=== PATIENT | male | born 1950 | race Hispanic/Latino ===

== ENCOUNTER 2021-08-10 15:31 | Inpatient (IN) | payer MEDICARE ==
[~2021-08-10] VITALS: Ht 182.9 cm; Wt 95.3 kg
[2021-08-10 16:36] VITALS: BP 141/82
[2021-08-10] MEDS ORDERED: MAGNESIUM HYDROXIDE 30 ML UDC PO PRN (17:00)
[2021-08-10] MEDS ORDERED: DEXTROSE 50% SYRINGE 50 ML IV PRN (17:00)
[2021-08-10] MEDS: PIPERACILLIN/TAZOBACTAM 3.375 GM in SODIUM CHLORIDE 0.9% 50ML 50 ML IV SCH (17:55)
[2021-08-10] MEDS ORDERED: SODIUM CHLORIDE 0.9% 250ML 250 ML ONE (17:58)
[2021-08-10] MEDS ORDERED: OMEPRAZOLE40 MG PO (18:04)
[2021-08-10] MEDS ORDERED: OMEGA 3 1,0001 EACH PO (18:04)
[2021-08-10] MEDS ORDERED: NIFEDIPINE ER30 M1 PO (18:04)
[2021-08-10] MEDS ORDERED: NOVOLIN 70100 UNIT/3 SQ ×2 (18:04)
[2021-08-10] MEDS ORDERED: METFORMIN HCL500 MG PO (18:04)
[2021-08-10] MEDS ORDERED: LORATADINE10 MG PO (18:04)
[2021-08-10] MEDS ORDERED: BENZONATATE100 MG PO (18:04)
[2021-08-10] MEDS ORDERED: SIMVASTATIN20 MG PO (18:04)
[2021-08-10] MEDS ORDERED: MONTELUKAST SOD10 MG PO (18:04)
[2021-08-10] MEDS ORDERED: PENTOXIFYLLINE400 MG PO (18:04)
[2021-08-10] MEDS ORDERED: ONE DAILY MEN'1 EAC1 (18:04)
[2021-08-10 18:07] VITALS: BP 141/82
[2021-08-10 18:13] VITALS: BP 141/82
[2021-08-10 18:14] VITALS: BP 141/82
[2021-08-10 18:30] LABS: BASOPHILS % 0.3 % (0.0-1.0); EOSINOPHILS # (AUTO) 0.1 (0.0-0.4); HEMOGLOBIN 12.1 g/dL (14.0-18.0); LYMPHOCYTES # (AUTO) 1.6 (1.0-3.2); LYMPHOCYTES % 13.8 % (18.0-39.1); MEAN CORPUSCULAR HGB CONC 31.8 g/dL (31-35); MEAN CORPUSCULAR VOLUME 84.8 fL (81-99); MONOCYTES # (AUTO) 0.9 (0.2-0.8); MONOCYTES % 8.1 % (4.4-11.3); NEUTROPHILS # (AUTO) 8.7 (2.1-6.9); NEUTROPHILS % 76.6 % (38.7-80.0); PLATELET COUNT 295 x10e3/uL (140-360); RED BLOOD COUNT 4.48 x10e6/uL (4.3-5.7)
[2021-08-10 18:46] LABS: ANION GAP 15.1 mmol/L (8-16); CALCIUM 9.2 mg/dL (8.4-10.2); CREATININE, SERUM 0.99 mg/dL (0.72-1.25); POTASSIUM 4.1 mmol/L (3.5-5.1)
[2021-08-10] MEDS: Vancomycin IV 1 GM in SODIUM CHLORIDE 0.9% 250ML 250 ML IV SCH (18:56)
[2021-08-10 18:58] LABS: CHOL/HDL RATIO 2.7 (3.9-4.7)
[2021-08-10 20:00] VITALS: BP 140/91
[2021-08-10 21:00] VITALS: BP 140/91
[2021-08-10] MEDS: HEPARIN SOD (PORCINE) 5,000 UNIT/ML VIAL SC SCH (22:00)
[2021-08-10] MEDS: INSULIN LISPRO 100 UNIT/1 ML 3ML VIAL SQ SCH (22:00)
[2021-08-10] MEDS: INSULIN GLARGINE 100 UNITS/ML VIAL SQ SCH (22:00)
[2021-08-10] MEDS: SIMVASTATIN 40 MG TAB PO SCH (22:00)
[2021-08-11] VITALS (8 sets, daily range): BP systolic 114–144; BP diastolic 60–85
[2021-08-11] MEDS: PIPERACILLIN/TAZOBACTAM 3.375 GM in SODIUM CHLORIDE 0.9% 50ML 50 ML IV SCH ×2 (00:15→08:09)
[2021-08-11] MEDS: Vancomycin IV 1 GM in SODIUM CHLORIDE 0.9% 250ML 250 ML IV SCH (06:17)
[2021-08-11] MEDS: PANTOPRAZOLE SOD 40 MG TABEC PO SCH (06:24)
[2021-08-11] MEDS: ACETAMINOPHEN 325 MG TAB PO PRN ×2 (06:24→21:54)
[2021-08-11] MEDS: INSULIN LISPRO 100 UNIT/1 ML 3ML VIAL SQ SCH ×4 (07:30→22:13)
[2021-08-11] MEDS: NIFEDIPINE CR 30 MG TAB PO SCH (08:09)
[2021-08-11] MEDS: HEPARIN SOD (PORCINE) 5,000 UNIT/ML VIAL SC SCH ×2 (09:00→22:16)
[2021-08-11] MEDS: SENNA-S TABLET PO SCH ×2 (09:01→17:00)
[2021-08-11] MEDS: DOCUSATE SODIUM 100 MG CAP PO SCH (09:01)
[2021-08-11] MEDS: Clindamycin INJ 900 MG 900 MG in SODIUM CHLORIDE 0.9% 50ML 50 ML IV SCH ×2 (14:15→21:54)
[2021-08-11] MEDS: SIMVASTATIN 40 MG TAB PO SCH (22:13)
[2021-08-11] MEDS: INSULIN GLARGINE 100 UNITS/ML VIAL SQ SCH (22:14)
[2021-08-12] VITALS (8 sets, daily range): BP systolic 113–137; BP diastolic 71–80
[2021-08-12] MEDS: Clindamycin INJ 900 MG 900 MG in SODIUM CHLORIDE 0.9% 50ML 50 ML IV SCH (05:58)
[2021-08-12] MEDS: INSULIN LISPRO 100 UNIT/1 ML 3ML VIAL SQ SCH ×4 (07:30→21:23)
[2021-08-12] MEDS: CEFTRIAXONE 2 GM in SODIUM CHLORIDE 0.9% 100 ML IV SCH (08:54)
[2021-08-12] MEDS: HEPARIN SOD (PORCINE) 5,000 UNIT/ML VIAL SC SCH ×2 (09:00→21:23)
[2021-08-12] MEDS ORDERED: DEXAMETHASONE SOD PHOS INJ 4 MG/ML SDV ONE ×2 (11:37→12:21)
[2021-08-12] MEDS ORDERED: BUPIVACAINE HCL 0.5% INJ 30 ML VIAL INJ ONE (11:37)
[2021-08-12] MEDS ORDERED: LIDOCAINE HCL 2% LOCAL INJ 5 ML SDV VIAL INJ ONE (12:21)
[2021-08-12] MEDS ORDERED: POVIDONE IODINE 0.05% 0.05 % ML PO ONE (12:21)
[2021-08-12] MEDS ORDERED: PROPOFOL IV EMULSION 10 MG/ML 20 ML VIAL ONE (12:21)
[2021-08-12] MEDS ORDERED: ONDANSETRON HCL INJ 2MG/ML 2ML 2 MG/ML VIAL ONE (12:21)
[2021-08-12] MEDS ORDERED: SEVOFLURANE INHAL SOLN 250 ML PEN BTL ONE (12:21)
[2021-08-12] MEDS ORDERED: FENTANYL CITRATE/PF 100MCG/2 ML INJ ONE (13:17)
[2021-08-12] MEDS: DOCUSATE SODIUM 100 MG CAP PO SCH (14:05)
[2021-08-12] MEDS: NIFEDIPINE CR 30 MG TAB PO SCH (14:05)
[2021-08-12] MEDS: SENNA-S TABLET PO SCH ×2 (14:05→16:26)
[2021-08-12] MEDS: PANTOPRAZOLE SOD 40 MG TABEC PO SCH (14:05)
[2021-08-12] MEDS: SIMVASTATIN 40 MG TAB PO SCH (21:01)
[2021-08-12] MEDS: INSULIN GLARGINE 100 UNITS/ML VIAL SQ SCH (21:22)
[2021-08-13] VITALS (9 sets, daily range): BP systolic 117–144; BP diastolic 63–83
[2021-08-13] MEDS: INSULIN LISPRO 100 UNIT/1 ML 3ML VIAL SQ SCH ×4 (07:55→21:13)
[2021-08-13] MEDS: PANTOPRAZOLE SOD 40 MG TABEC PO SCH (08:02)
[2021-08-13] MEDS: CEFTRIAXONE 2 GM in SODIUM CHLORIDE 0.9% 100 ML IV SCH (08:25)
[2021-08-13] MEDS: DOCUSATE SODIUM 100 MG CAP PO SCH (08:25)
[2021-08-13] MEDS: SENNA-S TABLET PO SCH ×2 (08:25→15:14)
[2021-08-13] MEDS: NIFEDIPINE CR 30 MG TAB PO SCH (08:29)
[2021-08-13] MEDS: HEPARIN SOD (PORCINE) 5,000 UNIT/ML VIAL SC SCH ×2 (09:00→21:13)
[2021-08-13 09:26] LABS: BASOPHILS % 0.3 % (0.0-1.0); EOSINOPHILS % 0.5 % (0.0-6.0); HEMATOCRIT 38.6 % (38.2-49.6); HEMOGLOBIN 12.3 g/dL (14.0-18.0); LYMPHOCYTES # (AUTO) 1.4 (1.0-3.2); LYMPHOCYTES % 18.2 % (18.0-39.1); MEAN CORPUSCULAR HEMOGLOBIN 27.4 pg (28-32); MEAN CORPUSCULAR HGB CONC 31.9 g/dL (31-35); MONOCYTES # (AUTO) 0.5 (0.2-0.8); MONOCYTES % 6.3 % (4.4-11.3); NEUTROPHILS # (AUTO) 5.6 (2.1-6.9); NEUTROPHILS % 74.3 % (38.7-80.0); PLATELET COUNT 340 x10e3/uL (140-360); RED BLOOD COUNT 4.49 x10e6/uL (4.3-5.7); RED CELL DISTRIBUTION WIDTH 13.5 % (11.7-14.4)
[2021-08-13 09:54] LABS: ANION GAP 15.2 mmol/L (8-16); CALCIUM 9.1 mg/dL (8.4-10.2); CREATININE, SERUM 0.87 mg/dL (0.72-1.25); POTASSIUM 4.2 mmol/L (3.5-5.1)
[2021-08-13] MEDS: SIMVASTATIN 40 MG TAB PO SCH (20:46)
[2021-08-13] MEDS: INSULIN GLARGINE 100 UNITS/ML VIAL SQ SCH (21:13)
[2021-08-14 05:52] VITALS: BP 154/76
[2021-08-14 06:03] LABS: BASOPHILS % 0.4 % (0.0-1.0); EOSINOPHILS # (AUTO) 0.2 (0.0-0.4); EOSINOPHILS % 3.6 % (0.0-6.0); HEMATOCRIT 38.9 % (38.2-49.6); HEMOGLOBIN 12.4 g/dL (14.0-18.0); LYMPHOCYTES # (AUTO) 1.9 (1.0-3.2); LYMPHOCYTES % 37.6 % (18.0-39.1); MEAN CORPUSCULAR HEMOGLOBIN 27.3 pg (28-32); MEAN CORPUSCULAR HGB CONC 31.9 g/dL (31-35); MEAN CORPUSCULAR VOLUME 85.5 fL (81-99); MONOCYTES # (AUTO) 0.4 (0.2-0.8); MONOCYTES % 7.8 % (4.4-11.3); NEUTROPHILS # (AUTO) 2.5 (2.1-6.9); NEUTROPHILS % 50.2 % (38.7-80.0); PLATELET COUNT 324 x10e3/uL (140-360); RED BLOOD COUNT 4.55 x10e6/uL (4.3-5.7); RED CELL DISTRIBUTION WIDTH 13.5 % (11.7-14.4)
[2021-08-14 06:19] LABS: ANION GAP 12.2 mmol/L (8-16); CALCIUM 8.4 mg/dL (8.4-10.2); CREATININE, SERUM 0.77 mg/dL (0.72-1.25); POTASSIUM 4.2 mmol/L (3.5-5.1)
[2021-08-14] MEDS: ACETAMINOPHEN 325 MG TAB PO PRN (06:45)
[2021-08-14 08:03] VITALS: BP 168/82
[2021-08-14] MEDS: INSULIN LISPRO 100 UNIT/1 ML 3ML VIAL SQ SCH ×2 (08:30→11:30)
[2021-08-14] MEDS: CEFTRIAXONE 2 GM in SODIUM CHLORIDE 0.9% 100 ML IV SCH (09:00)
[2021-08-14] MEDS: SENNA-S TABLET PO SCH (09:00)
[2021-08-14] MEDS: DOCUSATE SODIUM 100 MG CAP PO SCH (09:26)
[2021-08-14] MEDS: PANTOPRAZOLE SOD 40 MG TABEC PO SCH (09:26)
[2021-08-14] MEDS: NIFEDIPINE CR 30 MG TAB PO SCH (09:27)
[2021-08-14] MEDS: HEPARIN SOD (PORCINE) 5,000 UNIT/ML VIAL SC SCH (09:27)
[2021-08-14 09:30] VITALS: BP 168/82
[2021-08-14] MEDS ORDERED: DOXYCYCLINE HY100 MG PO (10:38)
[2021-08-14] MEDS ORDERED: CIPRO500 MG PO (10:39)
== END 2021-08-14 12:01 | disposition home or self-care (01) | DRG 616 ==
LOC: MED/SURG2 15:45
PROVIDERS: ADMIT Internal Medicine; ATTEND Internal Medicine
PROC: 0Y6T0Z0 Detachment at Right 3rd Toe, Complete, Open Approach (ICD-10-PCS; principal; 2021-08-12 12:00)
DX: E11.69 Type 2 diabetes mellitus with other specified complication (principal); U07.1 COVID-19; E11.52 Type 2 diabetes mellitus with diabetic peripheral angiopathy with gangrene; M86.171 Other acute osteomyelitis, right ankle and foot; I96 Gangrene, not elsewhere classified; E11.42 Type 2 diabetes mellitus with diabetic polyneuropathy; E11.65 Type 2 diabetes mellitus with hyperglycemia; Z79.4 Long term (current) use of insulin; Z79.899 Other long term (current) drug therapy; E78.5 Hyperlipidemia, unspecified; E66.9 Obesity, unspecified; Z68.28 Body mass index [BMI] 28.0-28.9, adult; Z87.891 Personal history of nicotine dependence
CPT/HCPCS: 36415; 71046; 80048; 80061; 80202; 82948; 83036; 85025; 85651; 86141; 87071; 87075; 87205; 88304; 88305; 88311; 93005; 93925; 96372; 99251; J0696; J1100; J1644; J1815; J2001; J2405; J2543; J3010; J3370; J7050; U0002

== ENCOUNTER → 2023-10-26 | Day surgery (SDC) | payer MEDICARE ==
[2023-10-19 10:09] LABS: BASOPHILS % 0.1 % (0.0-1.0); EOSINOPHILS # (AUTO) 0.2 (0.0-0.4); EOSINOPHILS % 1.9 % (0.0-6.0); HEMATOCRIT 36.9 % (38.2-49.6); HEMOGLOBIN 11.5 g/dL (14.0-18.0); LYMPHOCYTES # (AUTO) 1.5 (1.0-3.2); LYMPHOCYTES % 17.9 % (18.0-39.1); MEAN CORPUSCULAR HEMOGLOBIN 25.7 pg (28-32); MEAN CORPUSCULAR HGB CONC 31.2 g/dL (31-35); MEAN CORPUSCULAR VOLUME 82.4 fL (81-99); MONOCYTES # (AUTO) 0.8 (0.2-0.8); MONOCYTES % 8.9 % (4.4-11.3); NEUTROPHILS # (AUTO) 6.1 (2.1-6.9); PLATELET COUNT 328 x10e3/uL (140-360); RED BLOOD COUNT 4.48 x10e6/uL (4.3-5.7); RED CELL DISTRIBUTION WIDTH 21.8 % (11.7-14.4); WHITE BLOOD COUNT 8.58 x10e3/uL (4.8-10.8)
[~2023-10-26] MED LIST: BENZONATATE100 MG PO; CIPRO500 MG PO; DEXMEDETOMIDINE HCL 200 MCG/2 ML VIAL ONE; DOCUSATE SODIU100 MG PO; DOXYCYCLINE HY100 MG PO; FERROUS SULFAT325 MG PO; FUROSEMIDE40 MG PO; LANTUS 3ML100 UNITS/ SC; LIDOCAINE HCL 2% LOCAL INJ 5 ML SDV VIAL INJ ONE; LIPITOR10 MG PO; LIPITOR20 MG PO; LORATADINE10 MG PO; METFORMIN HCL500 MG PO; MONTELUKAST SOD10 MG PO; NIFEDIPINE ER30 M1 PO; NOVOLIN 70100 UNIT/3 SQ; NOVOLOG100 UNIT/1 SC; OMEGA 3 1,0001 EACH PO; OMEPRAZOLE40 MG PO; ONE DAILY MEN'1 EAC1; OSTEO BI-FLEX1 EAC2; PANTOPRAZOLE SO40 MG PO; PENTOXIFYLLINE400 MG PO; POTASSIUM CHLO20 ME1 PO; PROPOFOL IV EMULSION 10 MG/ML 20 ML VIAL ONE; REGLAN5 MG PO; SIMVASTATIN20 MG PO; VENTOLIN HFA18 GM INH; ZESTRIL2.5 MG PO
[2023-10-26] MEDS: LACTATED RINGER'S 1,000 ML ONE (05:59)
[2023-10-26 08:25] VITALS: BP 128/76; PULSE 78; RESP 18; O2SAT 96
== END | disposition home or self-care (01) ==
LOC: OR 05:24
PROVIDERS: ATTEND Internal Medicine Gastroenterology
DX: D50.9 Iron deficiency anemia, unspecified (principal); Z86.010 Personal history of colon polyps; K29.50 Unspecified chronic gastritis without bleeding; K25.7 Chronic gastric ulcer without hemorrhage or perforation; K31.1 Adult hypertrophic pyloric stenosis; K31.89 Other diseases of stomach and duodenum; K21.00 Gastro-esophageal reflux disease with esophagitis, without bleeding; K44.9 Diaphragmatic hernia without obstruction or gangrene; K57.30 Diverticulosis of large intestine without perforation or abscess without bleeding; K64.8 Other hemorrhoids; Z78.9 Other specified health status; I10 Essential (primary) hypertension; E78.5 Hyperlipidemia, unspecified; E11.9 Type 2 diabetes mellitus without complications; Z01.810 Encounter for preprocedural cardiovascular examination; Z01.812 Encounter for preprocedural laboratory examination; Z79.84 Long term (current) use of oral hypoglycemic drugs; Z79.4 Long term (current) use of insulin; Z79.899 Other long term (current) drug therapy; Z68.26 Body mass index [BMI] 26.0-26.9, adult
CPT/HCPCS: 36415 ×2; 43239; 45378; 82948; 85025; 88305; 88312; 88342; 93005; J2001; J2704; J7121

== ENCOUNTER → 2024-01-25 | Day surgery (SDC) | payer MEDICARE ==
[2024-01-17 09:38] LABS: BASOPHILS % 0.2 % (0.0-1.0); EOSINOPHILS # (AUTO) 0.1 (0.0-0.4); EOSINOPHILS % 1.2 % (0.0-6.0); HEMATOCRIT 33.3 % (38.2-49.6); LYMPHOCYTES # (AUTO) 1.5 (1.0-3.2); LYMPHOCYTES % 16.1 % (18.0-39.1); MEAN CORPUSCULAR VOLUME 89.8 fL (81-99); MONOCYTES # (AUTO) 0.8 (0.2-0.8); MONOCYTES % 8.6 % (4.4-11.3); NEUTROPHILS # (AUTO) 6.7 (2.1-6.9); NEUTROPHILS % 73.7 % (38.7-80.0); PLATELET COUNT 378 x10e3/uL (140-360); RED BLOOD COUNT 3.71 x10e6/uL (4.3-5.7); RED CELL DISTRIBUTION WIDTH 16.9 % (11.7-14.4); WHITE BLOOD COUNT 9.09 x10e3/uL (4.8-10.8)
[~2024-01-25] MED LIST changes: -DEXMEDETOMIDINE HCL 200 MCG/2 ML VIAL ONE; +FENTANYL CITRATE/PF 100MCG/2 ML INJ ONE; +SUCRALFATE1 GM PO; +[UNRECOGNIZED DRUG - OTHER] PO
[2024-01-25] MEDS: LACTATED RINGER'S 1,000 ML ONE (10:12)
[2024-01-25 11:15] VITALS: BP 125/75; PULSE 71; RESP 12; O2SAT 99
== END | disposition home or self-care (01) ==
LOC: OR 07:44
PROVIDERS: ATTEND Internal Medicine Gastroenterology
DX: K26.9 Duodenal ulcer, unspecified as acute or chronic, without hemorrhage or perforation (principal); K25.7 Chronic gastric ulcer without hemorrhage or perforation; K31.A11 Gastric intestinal metaplasia without dysplasia, involving the antrum; K44.9 Diaphragmatic hernia without obstruction or gangrene; K31.89 Other diseases of stomach and duodenum; D50.9 Iron deficiency anemia, unspecified; E11.9 Type 2 diabetes mellitus without complications; Z78.9 Other specified health status; K31.1 Adult hypertrophic pyloric stenosis; I10 Essential (primary) hypertension; E78.5 Hyperlipidemia, unspecified; Z01.810 Encounter for preprocedural cardiovascular examination; Z01.812 Encounter for preprocedural laboratory examination; Z79.4 Long term (current) use of insulin; Z79.84 Long term (current) use of oral hypoglycemic drugs; Z68.26 Body mass index [BMI] 26.0-26.9, adult
CPT/HCPCS: 36415 ×2; 43239; 82948; 85025; 88305; 88312; 88342; 93005; J2001; J2704; J3010; J7121

== ENCOUNTER → 2024-05-09 | Day surgery (SDC) | payer MEDICARE ==
[2024-04-29 10:08] LABS: BASOPHILS % 0.2 % (0.0-1.0); EOSINOPHILS # (AUTO) 0.1 (0.0-0.4); EOSINOPHILS % 0.9 % (0.0-6.0); HEMATOCRIT 35.6 % (38.2-49.6); HEMOGLOBIN 10.6 g/dL (14.0-18.0); LYMPHOCYTES # (AUTO) 1.8 (1.0-3.2); LYMPHOCYTES % 18.5 % (18.0-39.1); MEAN CORPUSCULAR HEMOGLOBIN 25.7 pg (28-32); MEAN CORPUSCULAR HGB CONC 29.8 g/dL (31-35); MEAN CORPUSCULAR VOLUME 86.4 fL (81-99); MONOCYTES # (AUTO) 1.1 (0.2-0.8); MONOCYTES % 11.1 % (4.4-11.3); NEUTROPHILS # (AUTO) 6.8 (2.1-6.9); NEUTROPHILS % 69.1 % (38.7-80.0); PLATELET COUNT 410 x10e3/uL (140-360); RED BLOOD COUNT 4.12 x10e6/uL (4.3-5.7); RED CELL DISTRIBUTION WIDTH 16.4 % (11.7-14.4); WHITE BLOOD COUNT 9.77 x10e3/uL (4.8-10.8)
[~2024-05-09] MED LIST changes: +FARXIGA10 MG PO; -FENTANYL CITRATE/PF 100MCG/2 ML INJ ONE; +LACTATED RINGER'S 1,000 ML ONE; +LIDOCAINE HCL 2% LOCAL 20 ML VIAL ONE; -LIDOCAINE HCL 2% LOCAL INJ 5 ML SDV VIAL INJ ONE
[2024-05-09 10:00] VITALS: BP 125/71; PULSE 63; RESP 16; TEMP 97.1; O2SAT 98
== END | disposition home or self-care (01) ==
LOC: OR 06:22
PROVIDERS: ATTEND Internal Medicine Gastroenterology
DX: D50.9 Iron deficiency anemia, unspecified (principal); K29.50 Unspecified chronic gastritis without bleeding; K25.7 Chronic gastric ulcer without hemorrhage or perforation; K44.9 Diaphragmatic hernia without obstruction or gangrene; K31.89 Other diseases of stomach and duodenum; Z71.3 Dietary counseling and surveillance; E11.9 Type 2 diabetes mellitus without complications; I10 Essential (primary) hypertension; E78.5 Hyperlipidemia, unspecified; J45.909 Unspecified asthma, uncomplicated; N28.9 Disorder of kidney and ureter, unspecified; Z78.9 Other specified health status; Z01.810 Encounter for preprocedural cardiovascular examination; Z01.812 Encounter for preprocedural laboratory examination; Z79.4 Long term (current) use of insulin; Z79.84 Long term (current) use of oral hypoglycemic drugs; Z79.899 Other long term (current) drug therapy
CPT/HCPCS: 36415 ×2; 43239; 82948; 85025; 88305; 88312; 88342; 93005; J2003; J2704; J7121